=== PATIENT | male | born 1990 | race African-American/Black ===

== ENCOUNTER 2018-03-12 14:06 | Emergency (ER) | payer MEDICAID ==
[~2018-03-12] VITALS: Ht 165.1 cm; Wt 109.5 kg
[2018-03-12 14:06] VITALS: BP 182/89
[2018-03-12] MEDS ORDERED: ketorolac tromethamine 15mg/ml inj. IM ONE (15:10)
== END 2018-03-12 16:20 | disposition home or self-care (01) ==
LOC: ER 14:06
DX: S46.812A Strain of other muscles, fascia and tendons at shoulder and upper arm level, left arm, initial encounter (principal); F12.10 Cannabis abuse, uncomplicated; Z87.891 Personal history of nicotine dependence; Z56.0 Unemployment, unspecified; Z59.0 Homelessness; X58.XXXA Exposure to other specified factors, initial encounter; Y93.89 Activity, other specified; Y92.89 Other specified places as the place of occurrence of the external cause; Y99.8 Other external cause status
CPT/HCPCS: 71045; 96372; 99283; J1885